=== PATIENT | female | born 1960 | race Caucasian/White ===

== ENCOUNTER → 2024-05-15 14:28 | Outpatient (REF) | payer BC, OTHER, SELFPAY | LOC: WDC 14:28 | PROVIDERS: ATTENDING PHYSICIAN Family Medicine | DX: Z12.31 Encounter for screening mammogram for malignant neoplasm of breast (principal) | CPT/HCPCS: 77063; 77067 ==

== ENCOUNTER 2025-01-16 23:04 | Emergency (ER) | payer BC, OTHER, SELFPAY ==
[2025-01-16 23:15] VITALS: BP 134/92
[2025-01-16] MEDS: ZOFRAN 4 MG IV (23:27)
[2025-01-17 00:02] LABS: ALT (SGPT) 35 U/L (0-35); AST (SGOT) 33 U/L (14-36); Albumin 5.1 g/dl (3.5-5.0); Alkaline Phosphatase 94 U/L (38-126); Blood Urea Nitrogen 23 mg/dl (7-17); Calcium 10.3 mg/dl (8.4-10.2); Carbon Dioxide 25 mmol/L (22-30); Chloride 104 mmol/L (98-107); Glucose 156 mg/dl (70-99); Lipase 223 U/L (23-300); Potassium 3.7 mmol/L (3.5-5.1); Sodium 142 mmol/L (135-145); Total Protein 8.1 g/dl (6.3-8.2); eGFR > 60.00
[2025-01-17 01:03] LABS: Hematocrit 42.4 % (37.0-47.0); Hemoglobin 13.7 g/dL (12.0-16.0); Mean Corp Hgb Conc. 32.3 g/dL (33.0-37.0); Mean Corpuscular Volume 92.0 fL (81.0-99.0); Platelet Count 299 10^3/uL (130-400); Red Cell Dist. Width 13.8 % (11.5-14.5)
[2025-01-17 01:04] LABS: Absolute Neutrophils -Man Diff 21.5 10^3/uL (1.4-6.5); Normal RBC Morphology Yes; Platelets Checked Yes; Total Cells Counted 100; Toxic Granulation 1+
[2025-01-17 01:18] VITALS: BP 131/67
[2025-01-17 01:21] VITALS: BMI 24.6
--- NOTE | 2025-01-17 01:34 | ED.GENMED ---
History of Present Illness
General
Chief Complaint: Abdominal Symptoms
Source: patient
Exam Limitations: none
Time Seen by Provider: 01/17/25 01:13
Nursing documentation reviewed up to this point in time: agreed with
History of Present Illness
History of Present Illness:
64-year-old female with history of hypothyroidism presents for 'extreme vomiting and diarrhea.' Denies abdominal pain, 'the vomiting was so extreme it felt like my insides were coming out.' She states symptoms started at 9 PM and she has had
numerous episodes of both. She states her daughter and son-in-law and their 2 kids had similar symptoms and they were told that the norovirus is going around the daycare. Her is starting to have symptoms.
Past History
Past History
ED Past Medical History: Hypothyroidism
ED Past Surgical History: Other (Thyroidectomy)
Review of Systems
Review of Systems
Allergies reviewed?: Yes
All Other Systems: ROS reviewed and negative except as documented in HPI and ROS
Constitutional: Denies fever
Respiratory: Denies trouble breathing
Cardiac: Denies chest pain
ABD/GI: Reports nausea, vomiting and diarrhea; Denies abdominal pain
: Denies dysuria or difficulty voiding
Musculoskeletal: Reports no symptoms
Skin: Reports no symptoms
Neurological: Reports no symptoms
Phy Exam
Physical Exam
Physical Exam:
GENERAL: No acute distress. A&Ox3.
CONSTITUTIONAL: Afebrile.
EYES: clear, conjunctivae normal
ENMT: moist mucus membranes, Pharynx nl
RESPIRATORY: Regular respirations, nonlabored, lungs clear.
CARDIOVASCULAR: Regular rate and rhythm, no murmurs, no rubs.
GI: Soft, nontender, normal BS
MUSCULOSKELETAL: Moves with ease. Well perfused.
SKIN: Warm, dry, pink
PSYCH: Normal mood and affect. Well kept, interactive and appropriate
NEUROLOGIC: Awake, alert and oriented. No focal neurological deficits
Course
Orders/Labs/Results
Orders:
Orders
01/16/25 23:27
Ondansetron Injectable [Zofran] 4 mg IV NOW STA
01/16/25 23:29
Complete Blood Count/With Diff Urgent
Comprehensive Metabolic Panel Urgent
Lipase Urgent
Manual Differential Urgent
01/17/25 02:08
Ondansetron HCl [Zofran] 4 mg PO NOW STA
01/17/25 02:09
Ondansetron Orally Disint [Zofran Odt (Orally Disintegrating)] 4 mg PO NOW STA
Abnormal Lab Results
01/16/25
23:29
WBC 22.9 H 10^3/uL
(4.8-10.8)
MCHC 32.3 L g/dL
(33.0-37.0)
MPV 11.0 H fL
(7.4-10.4)
Abs Neuts (Manual) 21.5 H 10^3/uL
(1.4-6.5)
Segmented Neutrophils 77 H %
(42-75)
Band Neutrophils 17 H %
(0-3)
Lymphocytes (Manual) 3 L %
(20-51)
BUN 23 H mg/dl
(7-17)
Glucose 156 H mg/dl
(70-99)
Calcium 10.3 H mg/dl
(8.4-10.2)
Albumin 5.1 H g/dl
(3.5-5.0)
01/16/25 23:29
01/16/25 23:29
Vital Signs
Initial and Last Documented VS:
Initial Vital Signs
Pulse Resp BP
82 18 134/92
01/16/25 23:15 01/16/25 23:15 01/16/25 23:15
Last Documented Vital Signs
Pulse Resp BP Pulse Ox
82 14 130/73 96
01/17/25 02:30 01/17/25 02:30 01/17/25 02:00 01/17/25 02:30
MDM/Problems Addressed
Differential Diagnosis Includes:
viral gastroenteritis
MDM/Problems Addressed:
64-year-old female with history of hypothyroidism presents for 'violent vomiting and diarrhea.' She states symptoms started at 9 PM and she has had several episodes of both. She states her daughter and son-in-law and their 2 kids had similar
symptoms and they were told that the norovirus is going around the daycare. Her is starting to have symptoms.
1:40 a.m.
After Zofran and IVFs pt feeling 'a little better.'
CBC:WBC 22.9 most likely reactive
CMP: BUN 23 otherwise unremarkable IVFs infusing for mild dehydration
2:10 AM:
Feeling better, tolerating stefan rita
2:40 AM:
Patient has had no vomiting or diarrhea since arrival
Pt smiling and appreciative of the care at discharge via wheelchair
*Pulse Oximetry
SaO2: 97
Oxygen Mode of Delivery: Room air
Patient hypoxic: no
*Critical Care Note
Total Time (30-74mins, 75-104mins- exclusive of procedures): Not Applicable
ED Attending Note
-
Portions of this chart may have been created with voice recognition software.� Occasional wrong word or��sound alike� substitutions may have occurred due to the inherent limitations of voice recognition software.
Discharge Plan
Departure
Patient Disposition: Home (Routine Discharge)
Date of Disposition: 01/17/25
Time of Disposition: 02:36
Patient with high blood pressure during this ER visit?: No
Condition: Good
Discharge Problem:
Gastroenteritis
Instructions: Viral gastroenteritis in adults, Clear Liquid Diet
Prescriptions:
New
ondansetron 4 mg tablet,disintegrating
4 mg PO Q8H PRN (Reason: nausea and vomiting) 5 Days Qty: 14 0RF
Activity Restrictions/Additional Instructions:
As we discussed, I sent a prescription to your pharmacy for Zofran to use as needed for nausea and vomiting.
Drink as much fluid as you can
Clear liquid diet until your stomach feels better. Then slowly advance to a soft then bland then regular diet
Interventions
Interventions:
*Risk Screen - Suicide Last Done: 01/16/25 23:15
*General Assessment Last Done: 01/16/25 23:15
*ED COVID-19 Vaccine History Last Done: 01/17/25 01:22
*ED Influenza Vaccine History Last Done: 01/17/25 01:22
YK-Dbkmfp-Nfufelachc Assessment Last Done: 01/17/25 01:22
Discharge Date and Time
Print Language: FRISIAN
[2025-01-17 02:00] VITALS: BP 130/73
[2025-01-17] MEDS: ZOFRAN ODT (ORALLY DISINTEGRATING) 4 MG PO (02:53)
== END 2025-01-17 03:14 | disposition home or self-care (01) ==
LOC: EMR 23:04
PROVIDERS: Emergency Medicine; EMERGENCY PHYSICIAN Emergency Medicine
DX: K52.9 Noninfective gastroenteritis and colitis, unspecified (principal); E03.9 Hypothyroidism, unspecified
CPT/HCPCS: 99283; 96374; 80053; 83690; 85025